=== PATIENT | male | born 1980 | race Caucasian/White ===

== ENCOUNTER 2018-05-20 17:11 | Inpatient (IN) ==
[2018-05-20] MEDS ORDERED: Aspirin 81 MG TAB.CHEW PO ONE (17:44)
[2018-05-20 17:56] LABS: Basophils # 0.1 K/mcL (0.0-0.2); Basophils % 0.6 %; Eosinophils # 0.1 K/mcL (0.0-0.6); Eosinophils % 0.9 %; Hematocrit 40.6 % (37.5-50.1); Hemoglobin 13.8 g/dL (12.9-16.9); Immature Granulocytes % 0.3 % (0-4); Lymphocytes # 2.3 K/mcL (0.6-4.6); Lymphocytes % 20.5 %; Mean Corpuscular Hemoglobin 33.5 pg (28.0-33.3); Mean Corpuscular Volume 98.5 fL (83.0-100.0); Mean Platelet Volume 9.1 fL (9.4-12.4); Monocytes # 0.8 K/mcL (0.0-1.3); Monocytes % 7.4 %; Neutrophils # 7.7 K/mcL (1.6-8.9); Platelet Count 256 K/mcL (140-400); Red Blood Count 4.12 M/mcL (4.19-5.50); Red Cell Distribution Width 12.1 % (11.5-14.5); Segmented Neutrophils % 70.3 %
--- NOTE | 2018-05-20 18:09 | Emergency Department Note ---
Addendum entered and electronically signed by Harris Parker 05/20/18 19:23: Spoke to Dr Okeefe at 1840 about case and he reviewed the 2 latest ECG at that time and he requested heparin infusion, rosuvastatin, asa, and repeat troponin with plans to do L heart cath in the am. Original Note: Disposition Clinical Impression: NSTEMI (non-ST elevated myocardial infarction) Disposition: Admitted As Inpatient Condition: Good Time of Disposition: 19:18 General Adult HPI - General Chief complaint: ED Chest Pain Stated complaint: CP Time Seen by Provider: 05/20/18 17:30 Source: patient Mode of arrival: ambulatory Limitations: no limitations Nursing Notes Reviewed: Yes Vital Signs Reviewed: Yes - History of Present Illness HPI Narrative: 37 year old man without a medical hx presents to the ED with chest pain. He says he has been experiencing midsternal stabbing type pain with occasional radiation to bilateral arms and jaw for the past 6-8 months and lasts for 1min to several hours. Initially the events would occur once a month and has been increasing in frequency to occurring almost daily now. He will have some occasional nausea during but denies diaphoresis, diplopia, blurry vision, dizziness, lightheadedness, syncope, sob, cough, vomiting, or abdominal pain. Onset (ago): month(s) (-) Location: chest (midsternal) Radiation: extremity (bilateral), other (jaw) Pain Severity: mild Pain Scale: 3 Quality: stabbing Consistency: intermittent Improves with: rest Worsens with: nothing Associated symptoms: Reports: other (nausea) Treatments Prior to Arrival: none - Related Data Home Medications Medication Instructions Recorded Confirmed BuPROPion SR (12 HR) [Wellbutrin 150 mg PO DAILY 05/20/18 05/20/18 SR] Previous Rx's Medication Instructions Recorded Aspirin 81 mg PO DAILY 30 Days #30 tab.chew 05/22/18 Metoprolol [Lopressor] 12.5 mg PO BID 30 Days #60 tablet 05/22/18 Rosuvastatin [Crestor] 40 mg PO HS 30 Days #30 tablet 05/22/18 Ticagrelor [Brilinta] 90 mg PO BID 30 Days #60 tablet 05/22/18 Allergies Allergy/AdvReac Type Severity Reaction Status Date / Time acetaminophen [From Vicodin] Allergy Itching Verified 05/20/18 19:45 hydrocodone [From Vicodin] Allergy Itching Verified 05/20/18 19:45 All systems ED: reviewed and negative except as stated. Eyes: Denies: vision change Cardiovascular: Reports: chest pain. Denies: palpitations, dyspnea on exertion , edema, syncope Respiratory: Denies: cough, dyspnea Gastrointestinal: Reports: nausea. Denies: abdominal pain, vomiting Musculoskeletal: Denies: neck pain Neurological: Reports: paresthesias. Denies: numbness Psychiatric: Reports: anxiety Past Medical History - Past Medical History Medical history: Reports: no medical history Psychiatric history: Reports: no psych history - Social History Smoking Status: Current every day smoker Smokeless Tobacco Status: Yes Alcohol use: Reports: rarely Drug use: Reports: none Physical Exam - General Limitations: no limitations General appearance: alert, in no apparent distress - Head Head exam: atraumatic, normocephalic, normal inspection - Eye Eye exam: Present: normal appearance - ENT ENT exam: mucous membranes moist - Neck Neck exam: Present: normal inspection, trachea midline - Chest Chest inspection: Present: normal inspection, symmetric chest wall rise - Respiratory Respiratory exam: Present: normal lung sounds bilaterally - Cardiovascular Cardiovascular exam: Present: regular rate, normal rhythm, normal heart sounds, +S1, +S2 - Abdominal Exam Abdominal exam: Present: soft, Non-Tender - Extremities Exam Extremities exam: Present: normal capillary refill. Absent: pedal edema - Neurological Exam Neurological exam: Present: alert - Psychiatric Psychiatric exam: Present: normal affect - Skin Skin exam: Present: warm, dry, intact, normal color Course Course Narrative: 37 year old otherwise healthy man with 6-8 month hx of stabbing midsternal chest pain with bilateral and jaw radiation thats increasing in frequency. He is pain free now and has remained pain free since arrival. Multiple ECG's have been concerning with some early st elevation without j point elevation or reciprocal changes. Initial troponin 0.48. Has received ASA. Spoke to Dr Okeefe about the case and sent him the 2 most recent ecg's and he requested a new troponin ran, start heparin infusion, and rosuvastatin with plans to do L heart cath tomorrow morning but declined to admit to his service. Will admit to hospitalist service for them to consult interventional cards. -ECG 1738, nsr, hr 63, early st elevation in precordial v3-v5, no j point elevation or reciprocal changes. -ECG 1742, nsr, hr 67, early st elevation in precordial v3-v5, no j point elevation or reciprocal changes. -ECG 1753, nsr, hr 69, early st elevation in precordial v3-v5, no j point elevation or reciprocal changes. -ECG 1829, sinus arrhythmia, hr 58, early st elevation in precordial v3-v5, no j point elevation or reciprocal changes. The last 3 ECG were all pain free and fully supine. Will admit to hospitalist service with NSTEMI who accepted with plan for interventional cardiology to do L heart cath in am. Vital Signs Temperature 98.2 F 05/20/18 17:22 Pulse Rate 73 05/20/18 17:22 Respiratory Rate 16 05/20/18 17:22 Blood Pressure 152/91 05/20/18 17:22 O2 Sat by Pulse Oximetry 99 05/20/18 17:22 Temperature 97.8 F 05/22/18 07:29 Pulse Rate 54 05/22/18 07:29 Respiratory Rate 18 05/22/18 07:29 Blood Pressure 145/82 05/22/18 07:29 O2 Sat by Pulse Oximetry 98 05/22/18 07:29 Oxygen Delivery Oxygen Delivery Room Air Medical Decision Making - Lab Data Result diagrams: 05/22/18 04:14 05/22/18 04:14 Lab Results 05/20/18 05/20/18 05/20/18 Range/Units 17:24 17:24 17:24 WBC 11.0 (4.3-11.1) K/mcL RBC 4.12 L (4.19-5.50) M/mcL Hgb 13.8 (12.9-16.9) g/dL Hct 40.6 (37.5-50.1) % MCV 98.5 (83.0-100.0) fL MCH 33.5 H (28.0-33.3) pg MCHC 34.0 (31.6-35.5) g/dL RDW 12.1 (11.5-14.5) % Plt Count 256 (140-400) K/mcL MPV 9.1 L (9.4-12.4) fL Immature Gran % 0.3 (0-4) % Seg Neutrophils % 70.3 % Lymphocytes % 20.5 % Monocytes % 7.4 % Eosinophils % 0.9 % Basophils % 0.6 % Neutrophils # 7.7 (1.6-8.9) K/mcL Lymphocytes # 2.3 (0.6-4.6) K/mcL Monocytes # 0.8 (0.0-1.3) K/mcL Eosinophils # 0.1 (0.0-0.6) K/mcL Basophils # 0.1 (0.0-0.2) K/mcL PT 10.6 (9.4-12.1) Seconds INR 0.9 APTT 29.6 (26.0-36.0) Seconds D-Dimer < 215 (0-500) ng/mLFEU Heparin Anti-Xa, Unfract (0.30-0.70) IU/mL Sodium 141 (136-145) mEq/L Potassium 3.4 L (3.5-5.1) mEq/L Chloride 106 (98-107) mEq/L Carbon Dioxide 26 (23-29) mEq/L BUN 9 (6-20) mg/dL Creatinine 0.94 (0.70-1.30) mg/dL Est GFR ( Amer) > 60 (> 60) Est GFR (Non-Af Amer) > 60 (> 60) BUN/Creatinine Ratio 10 (6-26) Glucose 90 (70-105) mg/dL Calculated Osmolality 290 (280-300) Calcium 9.3 (8.6-10.3) mg/dL Magnesium 1.7 (1.6-2.6) mg/dL Troponin I 0.48 H* (< 0.04) ng/mL 05/20/18 05/20/18 Range/Units 18:59 20:15 WBC (4.3-11.1) K/mcL RBC (4.19-5.50) M/mcL Hgb (12.9-16.9) g/dL Hct (37.5-50.1) % MCV (83.0-100.0) fL MCH (28.0-33.3) pg MCHC (31.6-35.5) g/dL RDW (11.5-14.5) % Plt Count (140-400) K/mcL MPV (9.4-12.4) fL Immature Gran % (0-4) % Seg Neutrophils % % Lymphocytes % % Monocytes % % Eosinophils % % Basophils % % Neutrophils # (1.6-8.9) K/mcL Lymphocytes # (0.6-4.6) K/mcL Monocytes # (0.0-1.3) K/mcL Eosinophils # (0.0-0.6) K/mcL Basophils # (0.0-0.2) K/mcL PT (9.4-12.1) Seconds INR APTT (26.0-36.0) Seconds D-Dimer (0-500) ng/mLFEU Heparin Anti-Xa, Unfract 0.03 L (0.30-0.70) IU/mL Sodium (136-145) mEq/L Potassium (3.5-5.1) mEq/L Chloride (98-107) mEq/L Carbon Dioxide (23-29) mEq/L BUN (6-20) mg/dL Creatinine (0.70-1.30) mg/dL Est GFR ( Amer) (> 60) Est GFR (Non-Af Amer) (> 60) BUN/Creatinine Ratio (6-26) Glucose (70-105) mg/dL Calculated Osmolality (280-300) Calcium (8.6-10.3) mg/dL Magnesium (1.6-2.6) mg/dL Troponin I 0.91 H* (< 0.04) ng/mL Attestation Statement - Attestation Attestation: I examined this patient and my medical decision-making was reviewed with the Resident Physician, Dr. Parker. I agree with the documented findings, disposition and treatment plan as described except to the extent set forth below. Pt is an otherwise healthy 37 yo wm smoker who presents to the ER with a 6-8 mo hx of intermittent substernal, sharp CP that radiates into b/l UE's which has been becoming more frequent and lasting longer periods of time. Pt insists this has been ongoing for past 6-8 months. Pt was seen at an approx one month ago , had an EKG and was told it was "abnormal" and recommended evaluation in the ER. Pt did not go to the ER at that time. Symptoms have continued, no aggravating/alleviating factors. No significant fam hx. No syncope, no other assocd sxs except for mild nausea with pain. I agree with pt's PE findings as documented. VSS. Brought initial EKG which shows biphasic T-waves in V2-V4, but no J-point elevation, and no reciprocal changes. EKG findings suspicious for early/ evolving ischemia. Immediately repeated EKG in supine position, and no significant changes. Initiated cardiac w/u, and pt pain free during EKG tracings , and remains pain free. Pt received ASA on arrival. 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 Agreed that did not meet STEMI criteria, and advised heparin, and will consult on pt, plan for heart cath in am. Pt with elev trop on labs. Reassessed and repeated eKG, no change in EKG over time. No recurrence of chest pain, pt resting comfortably and asymptomatic. Will admit to hospitalist for NSTEMI, and Cardiology consulted from ED.
[2018-05-20 18:19] LABS: BUN/Creatinine Ratio 10 (6-26); Blood Urea Nitrogen 9 mg/dL (6-20); Calcium 9.3 mg/dL (8.6-10.3); Carbon Dioxide 26 mEq/L (23-29); Chloride 106 mEq/L (98-107); Glucose 90 mg/dL (70-105); Osmolality,Calculated 290 (280-300); Potassium 3.4 mEq/L (3.5-5.1); Sodium 141 mEq/L (136-145); eGFR For Non-African Americans > 60 (> 60)
[2018-05-20 18:24] LABS: Troponin I 0.48 ng/mL (< 0.04)
[2018-05-20] MEDS ORDERED: *HR* Heparin 5,000 UNIT/ML VIAL IVP PRN ×2 (18:48)
[2018-05-20] MEDS ORDERED: *HR* Heparin 5,000 UNIT/ML VIAL IVP ONE (18:48)
[2018-05-20] MEDS ORDERED: Heparin 25,000 UNIT/500 ML D5W 25,000 UNIT/500 ML BAG IVC SCH (19:00)
[2018-05-20 20:08] LABS: INR 0.9; Prothrombin Time 10.6 Seconds (9.4-12.1)
[2018-05-20 20:10] LABS: Activated Partial Thrombo Time 29.6 Seconds (26.0-36.0)
[2018-05-20 20:18] LABS: D-Dimer < 215 ng/mLFEU (0-500)
[2018-05-20] MEDS ORDERED: Naloxone 0.4 MG/ML INJ IVP PRN (20:27)
[2018-05-20 21:02] LABS: Magnesium 1.7 mg/dL (1.6-2.6)
--- NOTE | 2018-05-20 21:31 | Internal Med History&Physical ---
Date of Encounter: 05/21/18 Time of Encounter: 21:28 Internal Medicine - H&P: HPI Chief complaint: chest pain Admitted From: Home Plans for Post Hospital Care: Home History of present illness: Mr. Barton is a 37 year old male without PMH reporting to the emergency department for an episode of chest pain today. The patient himself is a poor historian, his is present and is able to provide some additional details to and confirm some aspects of his history and ROS. He reports episodes of chest pain have been occurring for 6-8 months, his adds that these episodes have begun to increase in frequency--in February he had 1 episode per week , but since March and April, he's had at least 1 episode per day. His chest pain began just before noon today and was resolving by 17:00 this evening. He states he wasn't doing anything when the pain began and he describes the pain as feeling like he's been stabbed in the center of his chest , but also describes this pain as pressure. His chest pain was not positional, not reproducible with exertion or palpation, it's not pleuritic and it goes away on its own. He denies symptoms of nausea, vomiting, lightheaded or dizziness, shortness of breath, syncope, or abdominal pain. Today's chest pain was accompanied by bilateral UE pain and bilateral jaw pain. There is no certain time of day when this occurs and is not triggered by food or specific activities. He has a h/o tobacco use of about 18 years at 1 ppd; he drinks 6-8 beers a week and denies current drug use. On arrival to the emergency department, he was afebrile and hemodynamically stable; although initial BP was 152/91. Troponin 0.48 initially and minor hypokalemia present, labs otherwise unremarkable. Multiple EKGs taken and reviewed by Dr. Okeefe of cardiology who recommended DAPT and IV heparin with plans for heart cath tomorrow. Past Med Surg Social Fam HX - Past Medical History Medical history: no medical history Psychiatric history: no psych history - Social History Smoking Status: Current every day smoker Smokeless Tobacco Status: Yes Alcohol use: rarely Drug use: none - Family History Mother Name: levy Barton Age: 56 Hx Family Cardiac Disorders: Yes (HTN) Hx Family Respiratory Disorders: No Hx Family Cancer: No Hx Family GI Disorders: No Hx Family Genitourinary Disorders: No Hx Family Endocrine Disorder: No Hx Family Musculoskeletal Disorders: No Hx Family Neuromuscular Disorders: No Hx Family Neurologic Disorders: No Internal Medicine - H&P: Meds BuPROPion SR (12 HR) [Wellbutrin SR] 150 mg PO DAILY 05/20/18 [History] 3 Allergy/AdvReac Type Severity Reaction Status Date / Time acetaminophen [From Vicodin] Allergy Itching Verified 05/20/18 19:45 hydrocodone [From Vicodin] Allergy Itching Verified 05/20/18 19:45 All Systems PM: A 10-system review of systems was performed and is negative for pertinent findings except as documented above in the HPI. - Constitutional Constitutional: as per HPI, no chills, no fever(s) - Cardiovascular Cardiovascular ROS IM: as per HPI, chest pain, no dyspnea, no edema, no irregular heart rhythm, no lightheadedness, no palpitations, no syncope - Respiratory Respiratory: as per HPI, no cough, no dyspnea, no dyspnea on exertion - Gastrointestinal Gastrointestinal: no abdominal pain, no nausea, no vomiting - Neurological Neurological ROS: no dizziness, no numbness, no paresthesias - Constitutional Vitals: Temp Pulse Resp BP Pulse Ox 97.7 F 53 15 108/81 98 05/20/18 20:16 05/20/18 20:16 05/20/18 20:16 05/20/18 20:16 05/20/18 20:16 General appearance: Present: cooperative, A&O X 3, no acute distress, answers questions appropriately Exam: as below - Head Head exam: Present: atraumatic, normocephalic - Eye Eye exam: Present: EOMI, normal appearance, PERRL Pupils: Present: PERRL - Neck Neck exam general surgery: Present: supple, trachea midline - Respiratory Respiratory exam: Present: CTAB. Absent: rales, respiratory distress, rhonchi, wheezes - Cardiovascular Cardiovascular exam: Present: bradycardia (pulse in 50's to 60 bpm), +S1, +S2. Absent: diastolic murmur, gallop, rubs, systolic murmur - GI/Abdominal GI/Abdominal exam: Present: normal bowel sounds, soft. Absent: distended, tenderness, no peritoneal signs - Extremities Exam Extremities exam: Present: normal inspection, warm. Absent: calf tenderness, pedal edema, tenderness - Neurological Exam Neurological exam: Present: alert, CN II-XII intact, oriented X3, no focal deficits, strengths equal and symetr throughout - Psychiatric Psychiatric exam: Present: normal affect, normal mood. Absent: anxious - Skin Skin exam: Present: dry, intact, normal color, warm Internal Med - H&P Results - Labs CBC & Chem 7: 05/21/18 03:52 05/21/18 03:52 - Assessment and plan (1) NSTEMI (non-ST elevated myocardial infarction) Current Visit: Yes Status: Acute Assessment and plan: Troponin 0.48 --> 0.91 Hemodynamically stable with BP108/81, HR 55-60 bmp, SpO2 98% RA EKG x 4 in ED Given DAPT, Rosuvastatin 40mg, IV heparin bolus, and was started on heparin gtt in ED Cardiology (Dr. 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 (2) Elevated troponin Current Visit: Yes Status: Acute Assessment and plan: Troponin 0.48 --> 0.91 Likely due to myocardial damage Trend trop x1 (3) Hypokalemia Current Visit: Yes Status: Acute Assessment and plan: Initial potassium 3.4 Replaced with 40 mEq PO (4) Tobacco abuse Current Visit: Yes Status: Acute Assessment and plan: Current tobacco user, reports he has quit in the past Tobacco cessation education/counseling (5) Chest pain Current Visit: Yes Status: Resolved Assessment and plan: Resolved Qualifiers: Chest pain type: unspecified Qualified Code(s): R07.9 - Chest pain, unspecified (6) DVT prophylaxis Current Visit: Yes Status: Acute Assessment and plan: Currently on IV heparin gtt - Time Spent With Patient Total time spent is greater than 50% in coordination of care (as documented) at patient's floor/unit and/or counseling patient:
[2018-05-20] MEDS ORDERED: *HR* Ticagrelor 90 MG TABLET PO ONE (21:53)
[2018-05-20] MEDS ORDERED: Nitroglycerin 0.4 MG TAB.SUBL SL PRN (21:54)
--- NOTE | 2018-05-20 21:56 | Event Note ---
Date of Encounter: 05/20/18 Time of Encounter: 22:00 - Cardiology Event Note Contacted by ED and informed that patient presents with history of chest pain but was currently angina free and appeared comfortable. Advised that he was not actively bleeding nor anemic, so recommended DAPT and IV heparin for NSTEMI. Plan for [facility] tomorrow (anticipate [id number])
[2018-05-21 04:13] LABS: Basophils # 0.1 K/mcL (0.0-0.2); Basophils % 0.8 %; Eosinophils # 0.4 K/mcL (0.0-0.6); Eosinophils % 3.6 %; Hematocrit 36.8 % (37.5-50.1); Hemoglobin 12.8 g/dL (12.9-16.9); Immature Granulocytes % 0.2 % (0-4); Lymphocytes # 2.9 K/mcL (0.6-4.6); Lymphocytes % 30.1 %; Mean Corpuscular HGB Conc 34.8 g/dL (31.6-35.5); Mean Corpuscular Hemoglobin 33.6 pg (28.0-33.3); Mean Corpuscular Volume 96.6 fL (83.0-100.0); Mean Platelet Volume 9.2 fL (9.4-12.4); Monocytes # 0.9 K/mcL (0.0-1.3); Monocytes % 8.8 %; Neutrophils # 5.4 K/mcL (1.6-8.9); Platelet Count 242 K/mcL (140-400); Red Blood Count 3.81 M/mcL (4.19-5.50); Red Cell Distribution Width 12.3 % (11.5-14.5); Segmented Neutrophils % 56.5 %
[2018-05-21 04:36] LABS: BUN/Creatinine Ratio 10 (6-26); Blood Urea Nitrogen 9 mg/dL (6-20); Calcium 8.9 mg/dL (8.6-10.3); Carbon Dioxide 27 mEq/L (23-29); Chloride 106 mEq/L (98-107); Chol/HDL Ratio 2.6 (0-4.9); Cholesterol 111 mg/dL (< 200); Glucose 105 mg/dL (70-105); HDL Cholesterol 42 mg/dL (40-59); LDL Cholesterol,Calculated 30 mg/dL (0-99); Osmolality,Calculated 293 (280-300); Potassium 3.7 mEq/L (3.5-5.1); Sodium 142 mEq/L (136-145); Triglycerides 193 mg/dL (< 150); eGFR For Non-African Americans > 60 (> 60)
[2018-05-21] MEDS: Aspirin 81 MG TAB.CHEW PO SCH (07:57)
--- NOTE | 2018-05-21 08:46 | Cardiology Consult Note ---
Date of Encounter: 05/21/18 Time of Encounter: 08:15 Assessment and Plan (1) NSTEMI (non-ST elevated myocardial infarction) Current Visit: Yes Status: Acute Troponin peak 5.06 thus far. Ischemic ECG changes present. Chest pain free upon exam. On heparin gtt, brilinta/asa load in ED. Continue asa, statin. Will add BB. Check echocardiogram. Cardiac rehab. Recommend LHC with possible PCI; alternatives, risks, and benefits discussed; he is agreeable to proceed. Tobacco cessation counseling advised. Further recommendations to follow. (2) Tobacco abuse Current Visit: Yes Status: Acute Smoking cessation counseling provided. Discussion w patient/family: The assessment and plan as outlined above was discussed with the patient and/or family members who expressed understanding and agreement. All questions were answered. Thank you for involving us in the care of your patient. Please call with any questions. The patient will be discussed and reviewed with Dr. Okeefe; changes to be made accordingly. History of Present Illness Consult date: 05/21/18 Requesting physician: Se Rowell Consult reason: NSTEMI Chief complaint: Chest pain History of present illness: Mr. Barton is a 37 year old male with PMHx significant of tobacco dependency who presented to the ED with severe chest discomfort with radiation down bilateral arms and into neck. He reports symptoms lasted nearly 5 hours yesterday which prompted ED evaluation. He reports similar symptoms over the past 8 months, have been progressively worsening. Chest discomfort described as sharp/ heaviness. Patient reports discomfort occurs with rest and exertion. Associated symptoms include significant fatigue and activity intolerance. No prior CV testing. No significant past medical history. No first degree family hx; reports maternal aunt at 42 from [place]. ECG with ischemic changes, troponin 0.48, 0.91, 5.06. Past Med Surg Social Fam HX - Past Medical History Attestation: Yes The following information was validated with the patient. Source: patient Medical history: no medical history Psychiatric history: no psych history - Past Surgical History Surgical History: no surgical history - Social History Smoking Status: Current every day smoker Packs per day: 1 ppd x15+ years Smokeless Tobacco Status: Yes Alcohol use: rarely Drug use: none - Family History Mother Name: levy Barton Age: 56 Living Status: Still Living Hx Family Cardiac Disorders: Yes (HTN) Hx Family Respiratory Disorders: No Hx Family Cancer: No Hx Family GI Disorders: No Hx Family Genitourinary Disorders: No Hx Family Endocrine Disorder: No Hx Family Musculoskeletal Disorders: No Hx Family Neuromuscular Disorders: No Hx Family Neurologic Disorders: No Father Living Status: Still Living (no significant medical history) - Additional Family History Additional family history: Maternal aunt-- at 42 from [place]. Medications and Allergies BuPROPion SR (12 HR) [Wellbutrin SR] 150 mg PO DAILY 05/20/18 [History] 3 Allergy/AdvReac Type Severity Reaction Status Date / Time acetaminophen [From Vicodin] Allergy Itching Verified 05/20/18 19:45 hydrocodone [From Vicodin] Allergy Itching Verified 05/20/18 19:45 All Systems Review: The remainder of the systems were reviewed and are negative - Cardiovascular Cardiovascular: as per HPI Physical Examination Vital Signs, Last 4 Hours Temp Pulse Resp BP Pulse Ox 05/21/18 07:40 97.9 F 58 16 119/78 96 05/21/18 04:50 97.8 F 58 16 128/76 96 General: Conversant, No Apparent Distress HEENT: Atraumatic, Normocephaly, Mucus Membranes Moist Cardiac: Reg Rate and Rhythm, Normal S1 and S2 Lungs: Normal Breath Sounds, No Wheeze, Rales, Rhonchi Neuro: Alert and responsive, No focal deficits noted Abdomen: Soft Skin: No rashes noted on visualized skin Musculoskeletal: No Chest Wall Tenderness Extremities: No Edema, Normal Pulses Results 05/21/18 03:52 05/21/18 03:52 Lab Results 05/21/18 05/21/18 05/21/18 01:15 03:52 03:52 WBC 9.6 Hgb 12.8 L Hct 36.8 L Plt Count 242 Sodium 142 Potassium 3.7 Chloride 106 Carbon Dioxide 27 BUN 9 Creatinine 0.94 Glucose 105 Calcium 8.9 Troponin I 5.06 H* Active Medications Aspirin (Aspirin) 81 mg PO DAILY [place] Stop: 11/20/18 09:01 Last Admin: 05/21/18 07:57 Dose: 81 mg Heparin Sodium (Porcine) (Heparin) 4,000 unit IVP Q6HR PRN PRN Reason: SEE COMMENTS Stop: 11/19/18 18:49 Heparin Sodium (Porcine) (Heparin) 2,000 unit IVP Q6H PRN PRN Reason: SEE COMMENTS Stop: 11/19/18 18:49 Last Admin: 05/21/18 04:35 Dose: 2,000 unit Heparin Sodium/Dextrose (Heparin 25,000 Unit/500 Ml D5w) 25,000 unit in 500 mls @ 18.071 mls/hr IVC .Q24H [place]; 12 UNIT/KG/HR PRN Reason: Protocol Stop: 11/19/18 19:01 Last Titration: 05/21/18 04:29 Dose: 13.99 unit/kg/hr, 21.071 mls/hr Naloxone HCl (Narcan) 0.4 mg IVP Q2MIN PRN PRN Reason: SEE COMMENTS Stop: 11/19/18 20:28 Nitroglycerin (Nitroglycerin) 0.4 mg SL Q5MIN PRN PRN Reason: Chest Pain Stop: 11/19/18 21:55 Rosuvastatin Calcium (Crestor) 40 mg PO HS [place] Stop: 11/20/18 21:01 - Imaging and Cardiology Echo: pending Other Results: 12 hour tele: avg HR=63 SR. No significant event noted. - EKG Interpretation EKG results cardiology: personally reviewed Consult Discharge Plan - Plan Referrals: Link Reynolds MD [Primary Care Provider] -
--- NOTE | 2018-05-21 10:29 | Internal Med Progress Note ---
Hospitalist Progress Note - Encounter Date of Encounter: 05/21/18 Time of Encounter: 09:12 - Subjective Interval History: Patient seen and examined this morning. No acute overnight events. Denies chest pain currently. No shortness of breath, back pain, bowel or bladder complaints. - Exam Vitals: Temp Pulse Resp BP Pulse Ox 97.9 F 58 16 119/78 96 05/21/18 07:40 05/21/18 07:40 05/21/18 07:40 05/21/18 07:40 05/21/18 07:40 Exam: General: In no acute distress. Conversant. Respiratory exam: CTAB. no accessory muscle use, rales, rhonchi, wheezes Cardiovascular exam: RRR, +S1, +S2. no murmur, gallop, rubs. GI/Abdominal exam: Non-tender, Non-distended, normal bowel sounds, soft, no peritoneal signs. Extremities exam: full ROM, no pedal edema, warm, pulses palpable and symmetrical in both Upper and lower extremities. no calf tenderness, cyanotic Neurological exam: CN II-XII intact, AO X3, no focal deficits. no pronater drift , facial droop, speech deficit Skin exam: No skin rash, ulcer, purpura or ecchymosis. - Assessment and Plan (1) NSTEMI (non-ST elevated myocardial infarction) Current Visit: Yes Status: Acute (2) Elevated troponin Current Visit: Yes Status: Acute (3) Tobacco abuse Current Visit: Yes Status: Acute (4) Chest pain Current Visit: Yes Status: Resolved (5) DVT prophylaxis Current Visit: Yes Status: Acute (6) Hypokalemia Current Visit: Yes Status: Acute - Summary of Assessment and Plan Summary of Assessment and Plan: NSTEMI - Troponin peak at 5.06. Ischemic EKG in Er. - Currently chest pain free - c/w Heparin drip, aspirin, statin and Betablocker - Plan for [facility]. Hypokalemia - Replaced. Now resolved Tobacco abuse - current smoker. - counselled on cessation and options. DVT prophylaxis - On heparin dri - Time Spent with Patient Total time spent is greater than 50% in coordination of care (as documented) at patient's floor/unit and/or counseling patient: Internal Medicine: Result - Labs CBC & Chem 7: 05/21/18 03:52 05/21/18 03:52 Labs: Short CBC 05/21/18 Range/Units 03:52 WBC 9.6 (4.3-11.1) K/mcL Hgb 12.8 L (12.9-16.9) g/dL Hct 36.8 L (37.5-50.1) % Plt Count 242 (140-400) K/mcL Neutrophils # 5.4 (1.6-8.9) K/mcL BMP 05/21/18 03:52 Sodium 142 Potassium 3.7 Chloride 106 Carbon Dioxide 27 BUN 9 Creatinine 0.94 Glucose 105 Calcium 8.9 Cardiac Enzymes 05/21/18 Range/Units 01:15 Troponin I 5.06 H* (< 0.04) ng/mL - ABG Interpretation ABG results: PT/INR, D-dimer PT 10.6 Seconds (9.4-12.1) 05/20/18 17:24 D-Dimer < 215 ng/mLFEU (0-500) 05/20/18 17:24 Consult Discharge Plan - Plan Referrals: Link Reynolds MD [Primary Care Provider] - (4) Chest pain Qualifiers: Chest pain type: unspecified Qualified Code(s): R07.9 - Chest pain, unspecified
--- NOTE | 2018-05-21 14:43 | Electrocardiograph Report ---
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
--- NOTE | 2018-05-21 14:44 | Electrocardiograph Report ---
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
--- NOTE | 2018-05-21 14:45 | Electrocardiograph Report ---
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
--- NOTE | 2018-05-21 14:46 | Electrocardiograph Report ---
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
[2018-05-21] MEDS ORDERED: Heparin 1,000 UNITS/500 mL 500 ML ONE (15:01)
[2018-05-21] MEDS ORDERED: Nitroglycerin 1,000 MCG/10 ML VIAL IV ONE (15:01)
[2018-05-21] MEDS ORDERED: 0.9 % Sodium Chloride 1,000 ML ONE ×2 (15:01→15:02)
[2018-05-21] MEDS ORDERED: *HR* Heparin 10,000 UNIT/10 ML VIAL ONE (15:01)
[2018-05-21] MEDS ORDERED: ISOVUE-370 200 ML INFUS..BTL IV ONE (15:01)
[2018-05-21] MEDS ORDERED: *HR* Midazolam HCl 5 MG/5 ML VIAL IVP ONE (15:45)
--- NOTE | 2018-05-21 16:00 | Pre-Sedation Evaluation ---
Pre-sedation evaluation - Pre-sedation checklist Date of procedure: 05/21/18 Procedure: Heart Cath Recent Vitals: Last Vital Signs Temp 97.9 F 05/21/18 07:40 Pulse 58 05/21/18 07:40 Resp 16 05/21/18 07:40 BP 119/78 05/21/18 07:40 Pulse Ox 96 05/21/18 07:40 H&P (including ROS) documented in medical record: Yes Previous reaction to sedatives/anesthetics: No Dietary Status: NPO after Midnight Airway Assessment: Patient can open mouth completely, TMJ function normal Dentition: No loose teeth or bridges Possible difficult airway: No ASA Classification *see protocol: CLASS IV-Severe systemic disease/constant threat to pt's life Plan of Care: Pt appropriate candidate for procedure/moderate/conscious sedation , Risks/benefits of procedure/sedation discussed w/ patient/family, If not NPO; Risk of intake outweiged by necessity to perform procedure Cardiac Registry (Cardio Only) - Functional Capacity Functional Capacity: >=4 METS without symptoms - Clincal Frailty Scale Clinical Frailty Scale: Managing Well
[2018-05-21] MEDS ORDERED: *HR* Ticagrelor 90 MG TABLET ONE (16:13)
[2018-05-21] MEDS ORDERED: *HR* Atropine Sulfate 1 MG/10 ML SYRINGE ONE ×2 (16:16→18:10)
--- NOTE | 2018-05-21 18:10 | Invasive Diagnostic Lab Proc ---
Name: Jose Barton Date of Study: 05/21/2018 Date: 1980 Ht: 68.9in Medical Record#: [id number] Age: 37 Wt: 160.94lb Gender: Male BSA: 1.88 Order #: [id number] BMI: 23.84 Physicians Procedure Physician: Paul Guerra DO Referring MD: Referring MD: Staff Name Position Time In Shruthi Salvador RN Monitor 03:17 PM Lelia Rebolledo RN Personal Lines Account Manager 03:17 PM Jose Montaño RT (R) Scrub 03:17 PM Indications Indication Non-Stemi Procedures Performed Procedure L HRT ARTERY/VENTRICLE ANGIO PRQ CARD STENT W/ANGIO ADDL PRQ CARD BERYL STENT W/ANGIO 1 VSL Pre-Procedure Checklist Informed consent is complete signed and on chart. H&P is on chart. ID band is on and ID verified with patient. Patient NPO for procedure The procedure was described for the patient and questions were answered. Blood Pressure: 119/78 ECG is on chart. Rhythm: Sinus Bradycardia Plan of Care Patient will tolerate the procedure without complications. Adequate level of comfort will be maintained. Hemodynamics will remain stable Patient will recover from procedure without complications. Respiratory function will be maintained. Cardiac rhythm will remain stable. Patient temperature will be maintained. Patient and/or family have verbalized understanding of the procedure. Patient Education Chief Complaint/Reason for Test: Cardiac Cath Developmental Category: Adult (18-64 years) Developmentally Appropriate for Age: Yes Learning Barriers: None Education Needs: Procedure Education Method: Verbal Information Taught: Cardiac Cath Educational Evaluation: Able to repeat information Intravenous Access Time IV Size Location DC'd Fluid/Drip Rate Units RN 03:16 PM Allergies acetaminophen codeine Vital Signs Time BP (mmHg) HR (bpm) O2 Sat. RR (bpm) LOC 03:16 PM 119 / 78 58 96 % 16 5 = Fully awake and oriented or at pre-proc level 03:39 PM / % 5 = Fully awake and oriented or at pre-proc level 03:43 PM 124 / 71 65 99 % 0 03:47 PM 127 / 81 54 100 % 23 03:52 PM 122 / 79 51 99 % 20 03:57 PM 126 / 75 46 99 % 36 04:02 PM 126 / 83 49 100 % 21 04:07 PM 122 / 75 51 100 % 22 04:12 PM 126 / 81 50 100 % 18 04:17 PM 123 / 83 55 100 % 34 04:23 PM 123 / 69 48 97 % 16 04:27 PM 112 / 76 45 99 % 14 04:32 PM 122 / 76 42 100 % 12 04:50 PM 116 / 80 50 99 % 16 5 = Fully awake and oriented or at pre-proc level Procedural Medications Time Medication Dose Units Method Given By 03:38 PM Oxygen 2 L/min nasal cannula Lelia Rebolledo RN 03:46 PM Versed 2 mg Intravenous Lelia Rebolledo RN 04:04 PM Lidocaine 2% 5 ml Subcutaneous Paul Guerra DO 04:15 PM Brilinta 180 mg Orally Lelia Rebolledo RN 04:15 PM Heparin 2000 units Intravenous Lelia Rebolledo RN 04:20 PM Nitroglycerin 100 mcg Intracoronary Paul Guerra DO ASA Classification: CLASS IV- Severe systemic that is constant threat to patient's life Sean Score Preprocedure Postprocedure Activity 2- Moves 4 extremities sustained head lift Activity 2- Moves 4 extremities sustained head lift Circulation 2- SBP +/= 20 points of pre-anesthetic level Circulation 2- SBP +/= 20 points of pre-anesthetic level Consciousness 2- Awake and alert oriented x 3 Consciousness 2- Awake and alert oriented x 3 O2 Saturation 2- Able to maintain O2 satruation of 92% on room air O2 Saturation 2- Able to maintain O2 satruation of 92% on room air Respiratory 2- Able to deep breathe and cough well Respiratory 2- Able to deep breathe and cough well Total Score 10 Total Score 10 Contrast Agent: Isovue Diagnostic Contrast: 115 ml Total Contrast: 115 ml Fluoro Dose: 50 mGy Activated Clotting Time Time Seconds to Clot 04:15 PM 248 04:35 PM 203 04:37 PM 203 Procedure Log Time Note Enter By 03:17 PM Shruthi Salvador RN Position: Monitor [facility]: [facility]17 [facility] Lelia Rebolledo RN Position: Personal Lines Account Manager Time in: 15:17 [facility] 03[facility]17 PM Jose Montaño RT (R) Position: Scrub Time in: 15:17 [facility] 03[facility]17 PM Patient charges- Angio tray pack, Navilyst 3mm J, Pulse Oximetry [facility] 03:17 PM CathStat 03:38 PM Physician arrived 15:38 [facility] 03:38 PM 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 Informed consent was obtained. 03:38 PM Procedure start 15:38 mm 03:38 PM Time: 15:38 Oxygen on at 2 L/min per nasal cannula by Lelia Rebolledo RN [facility] 03:39 PM Time: 15:39 Patient comfortable and pain free: Yes :39 PM Time: 15:39LOC: 5 = Fully awake and oriented or at pre-proc level 03:39 PM Clinical Presentation: Non-STEMI 03:39 PM Hair removed from procedure site in procedure lab using clippers. Bilateral groin prepped with Chloraprep by Lelia Rebolledo RN, then patient was draped. Skin intact. [facility] 03:42 PM Vitals capture started with the following parameters, Patient=Adult, Interval=5 min, Initial Vhvlbpzm=406 mmHg, Deflation Rate=3 mmHg, Cuff placed on Right Arm 03:43 PM HR=65 bpm, YBWW=383/71 mmhg, SpO2=99.0 %, Resp=0 B/min, EtCO2=37 mmHg, Comment=nsr 03:46 PM Time: 15:46 Versed 2 mg Intravenous Given by Lelia Rebolledo RN [facility] 03:47 PM Recorded ECG: HR=45 Condition=Condition 1 03:47 PM HR=54 bpm, BIUW=034/81 mmhg, TxF5=116.0 %, Resp=23 B/min, EtCO2=43 mmHg, Comment=sb 03:50 PM Pressure channel 2 zeroed. 03:52 PM HR=51 bpm, LITT=527/79 mmhg, SpO2=99.0 %, Resp=20 B/min, Comment=sb 03:57 PM HR=46 bpm, AQKX=872/75 mmhg, SpO2=99.0 %, Resp=36 B/min, EtCO2=41 mmHg, Comment=sb 03:59 PM ASA Class CLASS IV- Severe systemic that is constant threat to patient's life [facility] 04:02 PM HR=49 bpm, ULZW=223/83 mmhg, HxC6=077.0 %, Resp=21 B/min, EtCO2=40 mmHg, Comment=sb 04:03 PM Time out was performed according to hospital policy. Conscious sedation and anesthesia was achieved (see medication log with in this report above) tsoummers 04:04 PM Time: 16:04 5 ml Lidocaine 2% to right groin Subcutaneous Given by Paul Guerra DO tsoumm 04:05 PM Micro-Introducer Kit utilized for sheath placement tsoummers 04:06 PM Access obtained by percutaneous puncture. 6Fr 10cm Terumo [place] sheath placed in right Femoral artery. [id number] tsoummers 04:06 PM 0.035 145cm Navilyst 3mmJ wire [id number] tsoummers 04:06 PM 6Fr FR 4 catheter inserted over the wire [facility] tsoumm 04:06 PM wire removed tsoumm 04:06 PM Catheter crossed the aortic valve and was selectively placed in the left ventricle. Pressures recorded on pullback for left heart catheterization. tsoummers 04:06 PM Bolus angiogram of left Ventricle complete: hand injection tsoummers 04:07 PM Recorded Pressure: LV, HR=57, Condition=Condition 1 (Left Ventricle) LV 65/-15/-5 04:07 PM Recorded Pressure: LV, Ao, HR=45, Condition=Condition 1 (Left Ventricle) LV 107/3/12, (Aorta) Ao 109/52/81 04:07 PM HR=51 bpm, RPUN=188/75 mmhg, HtX9=878.0 %, Resp=22 B/min, EtCO2=41 mmHg, Comment=sb 04:07 PM RCA angiography performed in multiple views. tsoummers 04:08 PM Recorded Pressure: Ao, HR=54, Condition=Condition 1 (Aorta) Ao 94/54/72 04:08 PM Catheter removed tsoummers 04:09 PM 6Fr JL4 Runway guide catheter was used to cannulate the PCI vessel successfully. reused? No tsoummers 04:09 PM LCA angiography performed in multiple views. tsoummers 04:10 PM Recorded Pressure: Ao, HR=49, Condition=Condition 1 (Aorta) Ao 95/59/75 04:10 PM Inflation device was opened. tsoummers 04:11 PM Coronary Dominance: Co-dominant tsoummers 04:11 PM Lesion found in Proximal LAD. Pre Stenosis: 80 Pre NOLAN Flow: 2: Partial Flow/Perfusion (> 1 but < 3) mm 04:11 PM Proximal Left Anterior Descending Coronary Artery with 80% stenosis. If graft is supplying this territory, 0 % stenosis. 04:12 PM HR=50 bpm, EDTM=861/81 mmhg, JtR5=467.0 %, Resp=18 B/min, EtCO2=39 mmHg, Comment=sb 04:13 PM .014 ChoICE PT Extra Support 300cm guide wire across target lesion- successful. reused? No oumm 04:15 PM Time: 16:15 Brilinta 180 mg Orally Given by Lelia Rebolledo RN maria alejandra 04:15 PM At 16:15 the ACT was 248 seconds. 04:15 PM Time: 16:15 Heparin 2000 units Intravenous Given by Lelia Rebolledo RN sonalieltha 04:17 PM Recorded Pressure: Ao, HR=46, Condition=Condition 1 (Aorta) Ao 122/80/98 04:17 PM HR=55 bpm, FYWM=840/83 mmhg, DhN0=884.0 %, Resp=34 B/min, EtCO2=40 mmHg, Comment=sb 04:18 PM 3.0mm x 20mm Synergy drug-eluting stent across target lesion- successful Lot #[id number] 04:19 PM Stent deployed @ 12 niesha for 16 seconds oumm 04:20 PM Stent delivery system removed intact. mm 04:20 PM Time: 16:20 Nitroglycerin 100 mcg Intracoronary Given by Paul Guerra DO [facility] 04:22 PM bed management calls, states pt can go to 2N06 when clean. 04:23 PM HR=48 bpm, ITQR=566/69 mmhg, SpO2=97.0 %, Resp=16 B/min, EtCO2=41 mmHg, Comment=sb 04:23 PM 1.5 mm x 8 mm Emerge Monorail balloon across target lesion- successful. reused? No mm 04:24 PM Balloon inflated @ 14 niesha for 17 seconds tsmm 04:24 PM Balloon catheter removed intact. mm 04:25 PM 2.5 mm x 6mm NC Emerge balloon across target lesion- successful. reused? No mm 04:26 PM Balloon inflated @ 12 niesha for 15 seconds oumm 04:26 PM Balloon inflated @ 12 niesha for 10 seconds tsoumm 04:27 PM Balloon catheter removed intact. mm 04:27 PM HR=45 bpm, NRUM=524/76 mmhg, SpO2=99.0 %, Resp=14 B/min, EtCO2=39 mmHg, Comment=sb 04:28 PM 2.5mm x 8mm Cordis EluNIR drug-eluting stent across target lesion- successful Lot #[id number] tsmm 04:28 PM Stent deployed @ 14 niesha for 16 seconds tsoumm 04:29 PM Stent delivery system removed intact. mm 04:31 PM Guide wire removed intact. mm 04:31 PM Guide catheter removed intact. mm 04:32 PM HR=42 bpm, AHSW=421/76 mmhg, VaC9=405.0 %, Resp=12 B/min, EtCO2=36 mmHg, Comment=sb 04:33 PM Bolus angiogram of right Femoral complete: HAND INJECTION [facility] 04:33 PM Procedure completed at 16:33 05/21/2018[facility] 04:34 PM Did you address NOLAN flow and Dominance? Yes [facility] 04:34 PM Sign out completed: Radiation Dose 449.54 mGy, 50.2489 Gy/cm2 Fluoro Time: 6.8 Isovue 370 - 200ml contrast 115 ml given by Paul Guerra DO. Complications: None. The patient was discharged out of the laboratory asst in stable condition. Cardiac Rehab Consult needed: YesConfirmed administered medications: Yes mm 04:35 PM Isovue 370 - 200ml,1 Bottle(s) used. tsmmers 04:35 PM At 16:35 the ACT was 203 seconds. tsmm 04:35 PM Sheath left in place to be pulled on floor/holding area tsoummers 04:35 PM Estimated Blood Loss: less than 20cc tsoummers 04:35 PM Post ECG Sinus Bradycardia tsoummers 04:35 PM Post Blood Pressure 122/76 tsoummers 04:35 PM 16:35 Post Pulses Bilateral DP & PT 2+ tsoummers 04:35 PM Information taught [facility] Cath and [facility] 04[facility] PM Education needs Procedure, Plan of Care, and Responsibilities of Patient in Care tsoummers 04:35 PM Learning barriers :None tsoummers 04:35 PM Education Methods Verbal tsoummers 04:35 PM Education evaluation Able to repeat information tsoummers 04:36 PM Site status No bleeding/hematoma - Rt Groin as reported by Jose Montaño RT (R) at 16:36 tsoummers 04:36 PM Opsite applied tsoummers 04:36 PM Plavix, Effient or Brilinta given Yes tsoummers 04:36 PM Delay to floor No tsoummers 04:36 PM Family placed in consult room. tsoummers 04:36 PM Complications: None tsoummers 04:37 PM At 16:37 the ACT was 203 seconds. tsoummers 04:38 PM Report given to Melissa HAGEN Pt taken to Holding room Room #2. 16:37 tsoummers 04:40 PM Lesion found in Ramus. Pre Stenosis: 40 Pre NOLAN Flow: tsoummers 04:40 PM Ramus with 40% stenosis. If graft is supplying this area, 0 % stenosis tsoummers 04:41 PM Patient out of room: 16:41 tsoummers 04:46 PM Lesion found in 1st Diagonal. Pre Stenosis: 80 Pre NOLAN Flow: 2: Partial Flow/Perfusion (> 1 but < 3) tsoummers 04:46 PM Mid/Distal Left Anterior Descending Coronary Artery and diagonal branches with 80% stenosis. If graft is supplying this area, 0 % stenosis tsoummers Complications Complication None Hemodynamics Pressures Site Systolic/A Wave Diastolic/V Wave Mean LV 65 -15 -5 LV 107 3 12 AO 109 52 81 AO 94 54 72 AO 95 59 75 AO 122 80 98 Post Procedure Information Blood Pressure: 122/76 mmHg Rhythm: Sinus Bradycardia Post procedural instructions were given Site Checks Time Location Status Staff Sheath In? Note 04:36 PM Rt Groin No bleeding/hematoma Jose Montaño RT (R) 04:50 PM Rt Groin No bleeding/ No Hematoma Aron Blackmon RN Pulses Time Site Pre-Procedure Post-Procedure Note 05/21/2018 3:16:00 PM Bilateral DP & PT 2+ 05/21/2018 3:16:00 PM Bilateral radial 2+ 4:35:00 PM Bilateral DP & PT 2+ 05/21/2018 4:50:00 PM Bilateral DP & PT 2+ Updated by Shruthi Salvador RN on 05/21/2018 4:54:07 PM Aron Blackmon RN electronically signed on 05/21/2018 6:04:53 PM with status of Final
[2018-05-21] MEDS: Nicotine 21 MG PATCH.TD24 TD SCH (19:06)
[2018-05-21] MEDS: 0.9 % Sodium Chloride 1,000 ML IVC SCH (20:38)
[2018-05-22] MEDS: *HR* Ticagrelor 90 MG TABLET PO SCH ×2 (00:57→09:19)
[2018-05-22] MEDS ORDERED: Melatonin 3 MG TABLET PO PRN (01:46)
[2018-05-22 04:41] LABS: Basophils # 0.1 K/mcL (0.0-0.2); Basophils % 0.7 %; Eosinophils # 0.2 K/mcL (0.0-0.6); Eosinophils % 2.8 %; Hematocrit 38.9 % (37.5-50.1); Immature Granulocytes % 0.2 % (0-4); Lymphocytes # 2.1 K/mcL (0.6-4.6); Lymphocytes % 24.4 %; Mean Corpuscular HGB Conc 33.4 g/dL (31.6-35.5); Mean Corpuscular Hemoglobin 33.2 pg (28.0-33.3); Mean Corpuscular Volume 99.5 fL (83.0-100.0); Mean Platelet Volume 9.5 fL (9.4-12.4); Monocytes # 0.7 K/mcL (0.0-1.3); Monocytes % 7.6 %; Neutrophils # 5.6 K/mcL (1.6-8.9); Platelet Count 238 K/mcL (140-400); Red Blood Count 3.91 M/mcL (4.19-5.50); Red Cell Distribution Width 12.2 % (11.5-14.5); Segmented Neutrophils % 64.3 %
[2018-05-22 05:50] LABS: BUN/Creatinine Ratio 9 (6-26); Blood Urea Nitrogen 7 mg/dL (6-20); Calcium 8.5 mg/dL (8.6-10.3); Carbon Dioxide 24 mEq/L (23-29); Chloride 107 mEq/L (98-107); Glucose 111 mg/dL (70-105); Osmolality,Calculated 285 (280-300); Potassium 3.8 mEq/L (3.5-5.1); Sodium 138 mEq/L (136-145); eGFR For Non-African Americans > 60 (> 60)
[2018-05-22] MEDS: 0.9 % Sodium Chloride 1,000 ML IVC SCH (07:04)
[2018-05-22 07:32] VITALS: BP 145/82
--- NOTE | 2018-05-22 08:44 | Cardiology Progress Note ---
Date of Encounter: 05/22/18 Time of Encounter: 08:00 Assessment and Plan (1) NSTEMI (non-ST elevated myocardial infarction) Current Visit: Yes Status: Acute Troponin peak 5.06. Ischemic ECG changes (anterior) present. Reports chest pain symptoms over the past 6-8 months. No chest pain overnight, labs/telemetry stable. No issues with right groin cath site. TTE 05/21/18: LVEF 50-55%. No significant valvular dysfunction, apex and apical septal reed were hypokinetic LHC 05/21/18: s/p successful PTCA/BERYL to pLAD, and BERYL to diagonal; otherwise mild, non-obstructive CAD (40% ramus). Post PCI discharge instructions discussed including care of cath site and importance of uninterrupted DAPT (asa + brilinta) for a minimum of 1 year. Brilinta savings card provided. Continue statin, BB, and recommend prn NTG upon discharge. Cardiac rehab consult. No further recommendations as inpt. Will coordinate outpatient follow-up in 5-7 days. (2) Tobacco abuse Current Visit: Yes Status: Acute Smoking cessation counseling provided. Discussion w patient/family: The assessment and plan as outlined above was discussed with the patient and/or family members who expressed understanding and agreement. All questions were answered. Thank you for involving us in the care of your patient. Please call with any questions. The patient will be discussed and reviewed with Dr. Dietz; changes to be made accordingly. Subjective Principal diagnosis: NSTEMI Interval history: Seen and examined. No complaints this morning upon exam, is eager for discharge to home. NO chest pain, no discomfort. No issues with right groin cath site. Objective Vital Signs, Last 4 Hours Temp Pulse Resp BP Pulse Ox 05/22/18 07:29 97.8 F 54 18 145/82 98 General: Conversant, No Apparent Distress HEENT: Atraumatic, Normocephaly, Mucus Membranes Moist Neck: No JVD, Normal carotid pulses Cardiac: Reg Rate and Rhythm, Normal S1 and S2, No Murmur Lungs: Normal Breath Sounds, No Wheeze, Rales, Rhonchi Neuro: Alert and responsive, No focal deficits noted Abdomen: Soft, Non-Tender Skin: No rashes noted on visualized skin Musculoskeletal: No Chest Wall Tenderness Extremities: No Clubbing, No Cyanosis, No Edema, Normal Pulses Other: right groin cath site: +2 DP/PT pulses, no hematoma, oozing or bleeding at site. Results 05/22/18 04:14 05/22/18 04:14 Lab Results 05/22/18 05/22/18 04:14 04:14 WBC 8.7 Hgb 13.0 Hct 38.9 Plt Count 238 Sodium 138 Potassium 3.8 Chloride 107 Carbon Dioxide 24 BUN 7 Creatinine 0.77 Glucose 111 H Calcium 8.5 L Active Medications Aspirin (Aspirin) 81 mg PO DAILY [facility] Stop: 11/20/18 09:01 Last Admin: 05/21/18 07:57 Dose: 81 mg Sodium Chloride (0.9 % Sodium Chloride) 1,000 mls @ 100 mls/hr IVC .Q10H [facility] Stop: 11/20/18 16:46 Last Admin: 05/22/18 07:04 Dose: 100 mls/hr Melatonin (Melatonin) 6 mg PO HS PRN PRN Reason: Insomnia Stop: 11/21/18 01:47 Last Admin: 05/22/18 01:51 Dose: 6 mg Metoprolol Tartrate (Lopressor) 12.5 mg PO BID [facility] Stop: 11/20/18 09:01 Last Admin: 05/21/18 20:38 Dose: 12.5 mg Naloxone HCl (Narcan) 0.4 mg IVP Q2MIN PRN PRN Reason: SEE COMMENTS Stop: 11/19/18 20:28 Nicotine (Nicoderm) 21 mg TD DAILY [place] PRN Reason: Protocol Stop: 11/20/18 13:01 Last Admin: 05/21/18 19:06 Dose: 21 mg Nitroglycerin (Nitroglycerin) 0.4 mg SL Q5MIN PRN PRN Reason: Chest Pain Stop: 11/19/18 21:55 Rosuvastatin Calcium (Crestor) 40 mg PO HS [facility] Stop: 11/20/18 21:01 Last Admin: 05/21/18 20:38 Dose: 40 mg Ticagrelor (Brilinta) 90 mg PO BID [facility] Stop: 11/20/18 21:01 Last Admin: 05/22/18 00:57 Dose: 90 mg - Imaging and Cardiology Echo: report reviewed Cardiac cath: report reviewed Other Results: 12 hour tele: avg HR=66 SR. NO events noted overnight. - EKG Interpretation EKG results cardiology: personally reviewed Consult Discharge Plan - Plan Referrals: Paul Guerra DO [Partnered Physician] - (Office will call patient at home with follow up appointment) Link Reynolds MD [Primary Care Provider] - 06/05/18 10:00 am
[2018-05-22] MEDS: Nicotine 21 MG PATCH.TD24 TD SCH (09:19)
[2018-05-22] MEDS: Aspirin 81 MG TAB.CHEW PO SCH (09:20)
--- NOTE | 2018-05-22 10:33 | Discharge Summary ---
- NOTES TO OUTPATIENT PROVIDER Notes to Outpatient Provider: Patient had LHC on 05/21/18 with successful PTCA/ BERYL to LAD and BERYL to diagonal. On dual antiplatelet with ASA and brilinta for minimum 1 year. Orders not resulted at time of discharge: Pending orders 05/21/18 08:59 CL Cardiac Catheterization [CL] Routine 05/21/18 16:40 ECG 12 lead ECG [ECG] Routine 05/22/18 07:00 ECG 12 lead ECG [ECG] Routine Date of Encounter: 05/22/18 Time of Encounter: 10:30 - Discharge Diagnosis (1) NSTEMI (non-ST elevated myocardial infarction) Priority: Primary Status: Acute (2) Elevated troponin Priority: Primary Status: Acute (3) Tobacco abuse Priority: Secondary Status: Acute (4) Chest pain Priority: Primary Status: Resolved Qualifiers: Chest pain type: unspecified Qualified Code(s): R07.9 - Chest pain, unspecified (5) DVT prophylaxis Priority: Secondary Status: Acute (6) Hypokalemia Priority: Secondary Status: Acute Hospital course: Mr. Barton is a 37 year old male without past medical history came in with chest pain. Was found to have ischemic changes on EKG as well as elevated troponin. Patient underwent cardiac catheterization with PTCA/BERYL to pLAD and BERYL to diagonal. He was started on Brilinta along with aspirin. Patient will also continue beta bacilio and statin. Patient was stable and was discharged home the next day. Discharge discussed with: patient, nurse, case management - Time Spent with Patient Total time spent providing and/or coordinating discharge services: Greater than 30 minutes - Discharge Medications Prescriptions: Aspirin 81 mg PO DAILY 30 Days #30 tab.chew Metoprolol [Lopressor] 12.5 mg PO BID 30 Days #60 tablet Rosuvastatin [Crestor] 40 mg PO HS 30 Days #30 tablet Ticagrelor [Brilinta] 90 mg PO BID 30 Days #60 tablet Home Medications: BuPROPion SR (12 HR) [Wellbutrin SR] 150 mg PO DAILY 05/20/18 [History] Aspirin 81 mg PO DAILY 30 Days #30 tab.chew 05/22/18 [Rx] Metoprolol [Lopressor] 12.5 mg PO BID 30 Days #60 tablet 05/22/18 [Rx] Rosuvastatin [Crestor] 40 mg PO HS 30 Days #30 tablet 05/22/18 [Rx] Ticagrelor [Brilinta] 90 mg PO BID 30 Days #60 tablet 05/22/18 [Rx] Allergies/Adverse Reactions: 3 Allergy/AdvReac Type Severity Reaction Status Date / Time acetaminophen [From Vicodin] Allergy Itching Verified 05/20/18 19:45 hydrocodone [From Vicodin] Allergy Itching Verified 05/20/18 19:45 Date of admission: 05/20/18 23:03 Primary care physician: Link Ryenolds MD Consults: 05/21/18 16:40 Consult to Cardiac Rehabilitation-Phase1 [CONS] Routine Comment: Reason for Consult: AMI Call Completed: Yes Consult to Nurse Navigator [CONS] Routine Comment: Discharging clinician: Ryanne Contreras - Constitutional Vitals: Temp Pulse Resp BP Pulse Ox 97.8 F 54 18 145/82 98 05/22/18 07:29 05/22/18 07:29 05/22/18 07:29 05/22/18 07:29 05/22/18 07:29 General appearance: Present: cooperative, A&O X 3, no acute distress, answers questions appropriately Exam: General: In no acute distress. Conversant. Respiratory exam: CTAB. no accessory muscle use, rales, rhonchi, wheezes Cardiovascular exam: RRR, +S1, +S2. no murmur, gallop, rubs. GI/Abdominal exam: Non-tender, Non-distended, normal bowel sounds, soft, no peritoneal signs. Extremities exam: full ROM, no pedal edema, warm, pulses palpable and symmetrical in both Upper and lower extremities. no calf tenderness, cyanotic Neurological exam: CN II-XII intact, AO X3, no focal deficits. no pronater drift , facial droop, speech deficit Skin exam: No skin rash, ulcer, purpura or ecchymosis. Rt groin, no hematoma or bleeding noted. - Patient Status Disposition: Home, Self-Care Condition: Good - Discharge Instructions Instructions: Metoprolol (By mouth), Aspirin (By mouth), Rosuvastatin (By mouth ), Ticagrelor (By mouth), Myocardial Infarction (DC), Chest Pain (DC) Follow Up With: Paul Guerra DO [Partnered Physician] - (Office will call patient at home with follow up appointment) Link Reynolds MD [Primary Care Provider] - 06/05/18 10:00 am - Diet and Activity Activity: return to work once cleared by your PCP/specialist Diet: low fat, low cholesterol
--- NOTE | 2018-05-25 16:01 | Electrocardiograph Report ---
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
== END 2018-05-22 11:49 | disposition home or self-care (01) | DRG 247 ==
LOC: EMEROOARM 17:11 → 2NENU 17:11 → SUATTDRO 23:03 → 2NNU 05-21 16:28
PROVIDERS: ADMIT Pediatrics; ATTEND Internal Medicine